=== PATIENT | male | born 1990 | race Asian ===

== ENCOUNTER 2019-10-06 05:14 | Emergency (ER) | payer OTHER ==
[~2019-10-06] VITALS: Ht 167.6 cm; Wt 68.0 kg
[2019-10-06 05:20] VITALS: BP 143/103
--- NOTE | 2019-10-06 05:20 | NUR ---
ED Nurse Note: Pt aaox4, vss, with no acute distress. Patient walked into ED c/o panic attack, states that he has been pacing non stop for 5 hours now. denies any pain. states that he usually gets panic attacks when he drinks. admits to drinking prior to arrival. Pt uncooperative and well groomed. Pt sister at bedside. Pt denies pain.
[2019-10-06] MEDS ORDERED: LORazepam 1mg tab ONE (05:26)
[2019-10-06] MEDS ORDERED: LORazepam 1mg tab ORAL ONE (05:30)
--- NOTE | 2019-10-06 05:31 | NUR ---
ED Nurse Note: Pt uncooperative with care. Pt left ED to smoke.
[2019-10-06 06:00] VITALS: BP 139/99
--- NOTE | 2019-10-06 06:00 | NUR ---
ER DISCHARGE NOTE: Patient is cleared to be discharged per ERMD, pt is aox4, on room air, with stable vital signs. pt was given dc instructions, pt was able to verbalize understanding, pt id band removed without complications. pt is able to ambulate with steady gait. pt took all belongings. Pt left ED with family member. Pt stated he feels better. Pt less aggitated.
--- NOTE | 2019-10-07 07:17 | Emergency Room Report ---
History of Present Illness General Chief Complaint: General Complaint Source: Patient Present Illness HPI 29-year-old male presents ED for evaluation. States that he was drinking tonight and feels very anxious. States that whenever he drinks he gets a panic attack. States that he has been given Ativan in the past. Denies SI or HI. Denies hearing voices. Denies drug use. No other aggravating relieving factors. Denies any other associated symptoms Allergies: Coded Allergies: No Known Allergies (Unverified , 10/06/19) Patient History Past Medical History: psych hx Past Surgical History: none Pertinent Family History: none Social History: Denies: smoking, alcohol use, drug use Immunizations: UTD Reviewed Nursing Documentation: PMH: Agreed; PSxH: Agreed Nursing Documentation-PMH Past Medical History: No History, Except For History Of Psychiatric Problem: Yes - anxiety Review of Systems All Other Systems: negative except mentioned in HPI Physical Exam Vital Signs Date Time Temp Pulse Resp B/P (MAP) Pulse Ox O2 Delivery O2 Flow Rate FiO2 10/06/19 05:15 98.2 85 23 143/103 (116) 98 Room Air Sp02 EP Interpretation: reviewed, normal General Appearance: no apparent distress, alert, GCS 15, non-toxic Head: normocephalic, atraumatic Eyes: bilateral eye normal inspection, bilateral eye PERRL ENT: hearing grossly normal, normal pharynx, no angioedema, normal voice Neck: full range of motion, supple/symm/no masses Respiratory: chest non-tender, lungs clear, normal breath sounds, speaking full sentences Cardiovascular #1: regular rate, rhythm, no edema Cardiovascular #2: 2+ carotid (R), 2+ carotid (L), 2+ radial (R), 2+ radial (L) , 2+ dorsalis pedis (R), 2+ dorsalis pedis (L) Gastrointestinal: normal bowel sounds, non tender, soft, non-distended, no guarding, no rebound Rectal: deferred Genitourinary: normal inspection, no CVA tenderness Musculoskeletal: back normal, normal range of motion, gait/station normal, non- tender Neurologic: alert, motor strength/tone normal, oriented x3, sensory intact, responsive, speech normal Psychiatric: no suicidal/homicidal ideation, no delusions, anxious Reflexes: 3+ bicep (R), 3+ bicep (L), 3+ tricep (R), 3+ tricep (L), 3+ knee (R) , 3+ knee (L) Skin: no rash Lymphatic: no adenopathy Medical Decision Making Diagnostic Impression: Primary Impression: Anxiety Additional Impression: Alcohol intoxication Qualified Codes: F10.920 - Alcohol use, unspecified with intoxication, uncomplicated ER Course Hospital Course 29 yo M presents with anxiety after alcohol use. Differential diagnoses include: ETOH, anxiety, substance abuse Clinical course: Patient placed on stretcher. on manager cardiac. after initial history, physical exam reveals young male that appears anxious. is able to answer questions approrpiately. I ordered ativan. on reassessment symptoms improved. but patient continues to ask for additional ativan. i do not believe it is indicated at this time. I suspect substance abuse we will discharge to home. i'll provide referrals I. I feel this is a highly complex case requiring extensive working including EKG/Rhythm strip, Xray/CT/US, Blood/urine lab work, repeat exams while in ED, and administration of strong opiates/narcotics for pain control, admission to hospital or close patient follow up. Diagnosis - anxiety, ETOH intoxication Stable and discharged to home. Followup with PMD. Return to ED if symptoms recur or worse Last Vital Signs Date Time Temp Pulse Resp B/P (MAP) Pulse Ox O2 Delivery O2 Flow Rate FiO2 10/06/19 06:00 98.7 20 139/99 100 Room Air 10/06/19 05:20 92 Status: improved Disposition: HOME, SELF-CARE Condition: Stable Referrals: Zoraida Foster. [facility] Patient Instructions: Panic Attacks, [id number] Jeff Ring MD Oct 07, 2019 07:17
== END 2019-10-06 06:00 | disposition home or self-care (01) ==
LOC: EMR 05:25
DX: F41.9 Anxiety disorder, unspecified (principal); F10.920 Alcohol use, unspecified with intoxication, uncomplicated
CPT/HCPCS: 99282

== ENCOUNTER 2020-06-23 23:55 | Emergency (ER) | payer OTHER ==
[~2020-06-23] VITALS: Ht 170.2 cm; Wt 65.8 kg
[2020-06-24 00:02] VITALS: BP 133/75
[2020-06-24] MEDS ORDERED: Tetanus/Diptheria/Pertussis IM ONE (00:15)
[2020-06-24] MEDS ORDERED: Neosporin Oint Ud Pkt TOPIC ONE (00:15)
--- NOTE | 2020-06-24 00:17 | Emergency Room Report ---
History of Present Illness General Chief Complaint: Medical Clearance Source: Patient Present Illness HPI Disclaimer: Please note that this report is being documented using [employer] technology. This can lead to erroneous entry secondary to incorrect interpretation by the dictating instrument. HPI: 29-year-old male brought in [employer] custody for medical clearance prior to incarceration. The patient was found stumbling around neighborhood breaking the house is reportedly. He reports drinking approximately half a pint of whiskey earlier. Denies other alcohol ingestion or drug use. Denies fall, head injury. Denies pain. Is only complaining of chapped lips. No reported seizure-like activity. He states he does not have a chronic alcohol issue or drug issue. Denies SI/HI. Cannot recall last tetanus. PMH: Denies PSH: Denies Allergies: Denies Social Hx: Occasional alcohol Allergies: Coded Allergies: No Known Allergies (Unverified , 10/06/19) COVID-19 Screening Contact w/high risk pt: No Experienced COVID-19 symptoms?: No COVID-[address] TECH: No Nursing Documentation-PMH Past Medical History: No Stated History Review of Systems All Other Systems: negative except mentioned in HPI Physical Exam Vital Signs Date Time Temp Pulse Resp B/P (MAP) Pulse Ox O2 Delivery O2 Flow Rate FiO2 06/23/20 23:56 98.2 80 16 146/90 (108) 100 Room Air General: Awake and alert, no acute distress HEENT: NC/AT. EOMI. Cardiovascular: RRR. S1 and S2 normal. No murmur appreciated Resp: Normal work of breathing. No cough, wheezing or crackles appreciated Abdomen: Abdomen is soft, nondistended. Nontender Skin: Intact. Scattered abrasions over the knees and elbows. No lacerations, no skin breakdown, no blistering otherwise MSK: Normal tone and bulk. Moving all extremities. No obvious deformity. Restrained to gurney in handcuffs bilaterally Neuro: Awake and alert. Mentating appropriately. Mildly intoxicated though coherent Medical Decision Making Diagnostic Impression: Primary Impression: Medical clearance for incarceration Additional Impression: Alcohol intoxication ER Course There is a 29-year-old male presenting for medical clearance prior to incarceration. Patient is awake, alert and coherent though appears slightly intoxicated. He is in restraints, handcuffed bilaterally, to the gurney. Acting appropriately, nonviolent. I find no outward signs of trauma aside from small abrasions. Will update tetanus. 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 Denies other medical issues at this time. Do not see indication for acute labs or imaging at this time. Will discharge to [employer] custody. Last Vital Signs Date Time Temp Pulse Resp B/P (MAP) Pulse Ox O2 Delivery O2 Flow Rate FiO2 06/24/20 00:02 82 16 Room Air 06/24/20 00:02 98.2 133/75 100 Disposition: LAW ENFORCEMENT IN CUST Condition: Stable Departure Forms: Long Term Clearance Additional Instructions: Your tetanus was updated today. Please follow-up with your primary care doctor in the next 1 to 3 days to discuss this emergency department visit and for reevaluation. If you have any new or worsening symptoms please return to the emergency department for reevaluation. Please note that this report is being documented using [employer] technology. This can lead to erroneous entry secondary to incorrect interpretation by the dictating instrument. Bin Oh MD Jun 24, 2020 00:17
[2020-06-24 00:28] VITALS: BP 128/79
== END 2020-06-24 00:28 ==
LOC: EDBD 23:55 → EMR 06-24 00:14
DX: F10.129 Alcohol abuse with intoxication, unspecified (principal); Z23 Encounter for immunization
CPT/HCPCS: 90471; 90715; 99282

== ENCOUNTER 2020-08-25 13:15 | Emergency (ER) | payer OTHER ==
[~2020-08-25] VITALS: Ht 177.8 cm; Wt 74.8 kg
[2020-08-25] MEDS ORDERED: chlordiazePOXIDE 25mg Cap ORAL ONE (13:45)
[2020-08-25 13:52] LABS: APPEARANCE,URINE CLEAR; BILIRUBIN, URINE NEGATIVE (NEGATIVE); COLOR,URINE PALE YELLOW; GLUCOSE, URINE (UA) NEGATIVE (NEGATIVE); KETONES,URINE NEGATIVE (NEGATIVE); LEUKOCYTE ESTERASE ,URINE NEGATIVE (NEGATIVE); NITRITE,URINE NEGATIVE (NEGATIVE); PH,URINE 8 (4.5-8.0); PROTEIN,URINE NEGATIVE (NEGATIVE); UROBILINOGEN,URINE NORMAL MG/DL (0.0-1.0)
[2020-08-25 13:55] VITALS: BP 139/67
--- NOTE | 2020-08-25 13:57 | NUR ---
ED Nurse Note: Patient brought in by father due to tingling in his body, feeling anxious for the past few hrs. Last alcohol intake was yesterday 6 packs beer and 1 bottle wine. Patient awake, alert, oriented x 4. Regular, unlabored breathing noted. Patient appears anxious and restless. Reassured patient. Denies N/V or seziure. Placed patient on color television console monitor. Seizure pads applied. Bed in lowest position. Urinal at bedside. Addendum: 08/25/20 at 1447 by RUBY Denies SI/HI.
[2020-08-25 14:03] LABS: BASOPHILS % (AUTO) 0.9 % (0.0-2.0); EOSINOPHILS % (AUTO) 0.8 % (0.0-3.0); HEMATOCRIT 48.6 % (42.0-52.0); HEMOGLOBIN 16.1 G/DL (14.2-18.0); LYMPHOCYTES % (AUTO) 20.4 % (20.0-45.0); MEAN CORPUSCULAR VOLUME 91 FL (80-99); MONOCYTES % (AUTO) 11.2 % (1.0-10.0); NEUTROPHILS % (AUTO) 66.7 % (45.0-75.0); PLATELET COUNT 279 K/UL (150-450); RED BLOOD COUNT 5.32 M/UL (4.70-6.10); RED CELL DISTRIBUTION WIDTH 12.6 % (11.6-14.8); WHITE BLOOD COUNT 6.3 K/UL (4.8-10.8)
[2020-08-25 14:15] LABS: ANION GAP 9 mmol/L (5-15); BLOOD UREA NITROGEN 15 mg/dL (7-18); CALCIUM 9.2 MG/DL (8.5-10.1); CARBON DIOXIDE 25 MMOL/L (21-32); CHLORIDE 102 MMOL/L (98-107); CREATININE 1.4 MG/DL (0.55-1.30); POTASSIUM 3.4 MMOL/L (3.5-5.1); SODIUM 136 MMOL/L (136-145)
[2020-08-25 14:19] LABS: ALANINE AMINOTRANSFERASE 62 U/L (12-78); ALBUMIN 4.5 G/DL (3.4-5.0); ALBUMIN/GLOBULIN RATIO 1.4 (1.0-2.7); ALKALINE PHOSPHATASE 64 U/L (46-116); ASPARTATE AMINO TRANSFERASE 28 U/L (15-37); BILIRUBIN,TOTAL 0.5 MG/DL (0.2-1.0)
--- NOTE | 2020-08-25 14:34 | NUR ---
ED Nurse Note: Patient resting in bed, using cell phone. Patient is asking for more Librium. Patient states he still feels"foggy", but "tingling is gone" Patient appears calm at this time. Alhaji JACK notified.
--- NOTE | 2020-08-25 14:37 | Emergency Room Report ---
History of Present Illness General Chief Complaint: Alcohol Intoxication Source: Patient Present Illness HPI 30-year-old male with history of alcohol intoxication here complaining of 1 day of feeling like his blood pressure is going up and very anxious and tingling sensation all over body. Reports that last night he drank 1 bottle of wine and 6 packs of beer per himself. Patient asked immediately for Ativan as reports in "it usually works the best." Denies any interest in getting help for alcohol abuse. Patient reports that since he does not drink on daily basis he does not feel the need to get any help. Denies any drug use, chest pain, shortness of breath, headache and dizziness at this time. After receiving 1 dose of Librium and fluid patient asked for Ativan specifically and when told that he cannot receive and will be given more fluid patient decides to leave. At this time patient is cleared to leave and no abnormal lab results found. 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 COVID-19 Screening: Negative COVID-19 COVID-19 Testing Source: unk Patient History Past Medical History: see triage record Past Surgical History: none Pertinent Family History: none Social History: Reports: alcohol use Immunizations: UTD Reviewed Nursing Documentation: PMH: Agreed; PSxH: Agreed Nursing Documentation-PMH Past Medical History: No History, Except For History Of Psychiatric Problem: Yes - anxiety attacks Review of Systems All Other Systems: negative except mentioned in HPI Physical Exam Vital Signs Date Time Temp Pulse Resp B/P (MAP) Pulse Ox O2 Delivery O2 Flow Rate FiO2 08/25/20 13:20 98.1 92 28 141/91 (108) 97 Room Air Sp02 EP Interpretation: abnormal - Slightly tachycardic General Appearance: well appearing Head: normocephalic Eyes: bilateral eye normal inspection, bilateral eye PERRL ENT: hearing grossly normal, normal pharynx, no angioedema, normal voice Neck: full range of motion, supple/symm/no masses Respiratory: chest non-tender, lungs clear, normal breath sounds, no rhonchi, no respiratory distress, no retraction, speaking full sentences Cardiovascular #1: regular rate, rhythm, no edema, no murmur Cardiovascular #2: 2+ carotid (R), 2+ carotid (L), 2+ radial (R), 2+ radial (L), 2+ dorsalis pedis (R), 2+ dorsalis pedis (L) Gastrointestinal: normal bowel sounds, non tender, soft, non-distended, no guarding, no rebound Musculoskeletal: back normal, no calf tenderness, gait/station normal, no lower extremity edema Neurologic: alert, motor strength/tone normal, oriented x3, sensory intact, responsive, speech normal Psychiatric: judgement/insight normal, memory normal, mood/affect normal, no suicidal/homicidal ideation Skin: no rash Lymphatic: no adenopathy Medical Decision Making PA Attestation All my diagnosis and treatment plans were reviewed ad discussed with my supervising physician Dr. Ring Diagnostic Impression: Primary Impression: Alcohol withdrawal ER Course 30-year-old male with history of alcohol intoxication here complaining of 1 day of feeling like his blood pressure is going up and very anxious and tingling sensation all over body. Reports that last night he drank 1 bottle of wine and 6 packs of beer per himself. Patient asked immediately for Ativan as reports in "it usually works the best." Denies any interest in getting help for alcohol abuse. Patient reports that since he does not drink on daily basis he does not feel the need to get any help. Denies any drug use, chest pain, shortness of breath, headache and dizziness at this time. After receiving 1 dose of Librium and fluid patient asked for Ativan specifically and when told that he cannot receive and will be given more fluid patient decides to leave. At this time patient is cleared to leave and no abnormal lab results found. Ddx considered but are not limited to: Alcohol intoxication with altered level of consciousness, alcohol intoxication causing pancreatitis, alcohol abuse, multi drug use and alcohol intoxication Vital signs: are WNL, pt. is afebrile H&PE are most consistent with: Alcohol withdrawal ORDERS: UA, EtOH serum level, tox screen, ER intervention: Librium, NS bolus DISCHARGE: At this time pt. is stable for d/c to home. Will provide printed patient care instructions, and any necessary prescriptions. Care plan and follow up instructions have been discussed with the patient prior to discharge. Patient to avoid taking alcohol, follow primary care provider, No further evaluation is needed. If worsening symptoms return to the emergency room. Tachycardia resolved upon discharge EKG Diagnostic Results Rate: normal Rhythm: NSR ST Segments: no acute changes Other Impression No acute ST changes ASA given to the pt in ED: No Chest X-Ray Diagnostic Results Chest X-Ray Diagnostic Results : Chest X-Ray Ordered: Yes # of Views/Limited/Complete: 1 View Indication: Other EP Interpretation: Yes PA Xray: Interpretation reviewed, by supervising MD, and agrees with findings. Interpretation: no consolidation, no effusion, no pneumothorax, no acute cardiopulmonary disease Impression: No acute disease Electronically Signed by: Alhaji Hsu PA-C Last Vital Signs Date Time Temp Pulse Resp B/P (MAP) Pulse Ox O2 Delivery O2 Flow Rate FiO2 08/25/20 13:55 67 16 139/67 99 Room Air 08/25/20 13:20 98.1 Disposition: HOME, SELF-CARE Condition: Stable Patient Instructions: Alcohol Abuse and Nutrition Additional Instructions: Follow-up with primary care provider, avoid drinking alcohol, follow-up with primary care provider, worsening symptoms return to the emergency room Alhaji Faustin Aug 25, 2020 14:37
--- NOTE | 2020-08-25 14:41 | NUR ---
ED Nurse Note: Patient refused IV fluids and wants to leave. GUERO Mane notfied and ok to discharge patient at this time.
[2020-08-25 14:42] VITALS: BP 124/67
--- NOTE | 2020-08-25 14:42 | NUR ---
ER DISCHARGE NOTE: Patient is cleared to be discharged per Brit Mane. Patient awake, alert, oriented x 4. Regular, unlabored breathing noted. D/C instruction given. Patient verbalized understanding of it. ID band removed. Patient ambulated out with steady gait with all his belongings. Transportation arranged by patient and father is taking patient home.
--- NOTE | 2020-08-25 15:01 | Diagnostic Imaging Report ---
Indication: Chest pain Technique: One view of the chest Comparison: none Findings: Lungs and pleural spaces are clear. Heart size is normal. Impression: No acute process
--- NOTE | 2020-08-26 14:37 | Cardiology Report ---
APPROVED REPORT EKG Measurement Heart [id number] <Conclusion> Normal sinus rhythm Normal ECG
== END 2020-08-25 14:42 | disposition home or self-care (01) ==
LOC: EMR 13:45
DX: F10.239 Alcohol dependence with withdrawal, unspecified (principal); F41.9 Anxiety disorder, unspecified; R20.2 Paresthesia of skin
CPT/HCPCS: 36415; 71045; 80053; 80307; 81003; 84484; 85025; 93005; 96360; G0480; J7030; Z7502; 99284